=== PATIENT | female | born 1960 | race Caucasian/White ===

== ENCOUNTER 2018-05-29 14:59 | Outpatient (CLI) | payer MEDICARE, SELFPAY ==
--- NOTE | 2018-05-29 15:10 | DI.RAD_ITS ---
SYMPTOM/DIAGNOSIS: BACK PAIN/RT LEG PARESTHESIAS S39.92XA, W19.XXA PELVIS AND BILATERAL HIPS: The hip ;joint spaces are well maintained. There is minimal acetabular spurring. The S-I joints show mild spurring. IMPRESSION: Mild degenerative changes.
--- NOTE | 2018-05-29 15:10 | DI.RAD_ITS ---
SYMPTOM/DIAGNOSIS: BACK PAIN AND FALL, NUMBNESS RT LEG LUMBAR SPINE: Comparison is made with CT abdomen and pelvis dated 22 Jul 2015. There is a moderate dextroscoliosis, worsening when compared with the previous exam. Degenerative disc changes are seen which are asymmetric with disc space narrowing on the left side, end plate osteophytes as well as sclerosis at L2-3 and L3-4. There is narrowing on the right side at L5-S1. No compression fractures are seen. IMPRESSION: Degenerative disc changes, greatest on the left side at L3-4 and on the right at L5-S1.
== END 2018-05-29 15:19 ==
PROVIDERS: PCP Family Medicine; Visit Provider Internal Medicine
DX: M54.5 Low back pain (principal); R20.0 Anesthesia of skin; M51.37 Other intervertebral disc degeneration, lumbosacral region; S39.92XA Unspecified injury of lower back, initial encounter; W19.XXXA Unspecified fall, initial encounter; M16.0 Bilateral primary osteoarthritis of hip
CPT/HCPCS: 73521; 72110

== ENCOUNTER → 2018-05-31 09:10 | Outpatient (CLI) | payer MEDICARE, SELFPAY ==
--- NOTE | 2018-05-31 11:06 | DI.MRI_ITS ---
SYMPTOM/DIAGNOSIS: INJURY, S34.109a, BACK PAIN, INCONTINENCE, RT LEG PAIN LUMBAR SPINE MRI: Routine noncontrast examination. There is a right convex scoliosis of the lumbar spine. Marrow signal shows no evidence of an occult fracture. The conus medullaris has a normal appearance and location. At L 5-S 1, there is disc desiccation. There is a diffuse disc bulge. No central spinal canal stenosis is seen. There are degenerative changes of the facets. There is marked right neural foraminal stenosis compressing the exiting nerve root. No significant left neural foraminal stenosis is present. At L 4-5, there is disc desiccation. Endplate degenerative signal changes are noted. There is a mild diffuse disc bulge. No focal disc herniation or significant central spinal canal stenosis is present. There are hypertrophic changes of the facets. There is mild bilateral narrowing of the neural foramen. Mild compression of the left exiting nerve root is seen. At L 3-4, there is degenerative disc disease. Endplate osteophytes and degenerative endplate signal changes are present. There is a diffuse disc bulge. There are degenerative changes of the facets which cause mild narrowing of the central spinal canal. No significant right neural foraminal stenosis is seen. There is moderate left neural foraminal stenosis with mild compression of the exiting nerve root. At L 2-3, there is disc desiccation. No focal disc herniation or central spinal canal stenosis is seen. There is mild narrowing of the left neural foramen. No significant nerve root compression is seen. No right neural foraminal stenosis is seen. At L 1-2, there is no focal disc herniation, central spinal canal or neural foraminal stenosis. Degenerative endplate signal changes are present. IMPRESSION: 1. No evidence of an acute fracture. 2. Multi level degenerative changes in the lumbar spine resulting in central spinal canal and neural foraminal stenosis. The findings are most marked at L 4-5 and L 5-S 1 as described above.
== END ==
PROVIDERS: PCP Family Medicine; Visit Provider Internal Medicine
DX: M54.5 Low back pain (principal); M79.604 Pain in right leg; M51.16 Intervertebral disc disorders with radiculopathy, lumbar region; M51.37 Other intervertebral disc degeneration, lumbosacral region; R32 Unspecified urinary incontinence
CPT/HCPCS: 72148

== ENCOUNTER 2019-05-12 02:07 | Outpatient (CLI) | payer MEDICARE, SELFPAY ==
[2019-05-12 12:34] LABS: ALT 43 U/L (14-59); AST 22 U/L (15-37); Alkaline Phosphatase 103 U/L (46-116); Anion Gap 9.2 mmol/L (3-11); BUN 26 mg/dL (7-18); Bilirubin, Total 0.8 mg/dL (0.2-1.0); CO2 28.8 mmol/L (21.0-32.0); Calcium 9.3 mg/dL (8.5-10.1); Chloride 104 mmol/L (98-107); Estimated GFR 57.15 (mL/min/1.73m2); Glucose 95 mg/dL (70-100); Potassium 4.1 mmol/L (3.5-5.1); Sodium 142 mmol/L (136-145)
== END 2019-05-12 02:27 ==
PROVIDERS: PCP Family Medicine; Visit Provider Family Medicine
DX: I10 Essential (primary) hypertension (principal)
CPT/HCPCS: 36415; 80053

== ENCOUNTER 2019-05-28 15:16 | Outpatient (REF) | payer MEDICARE, SELFPAY ==
--- NOTE | 2019-05-28 11:40 | SKI_PTH ---
PATIENT: Christian William LOC: [facility] U#:[id number] AGE/SX: 58/F ROOM: RE05/28/[address]: Augusto Erazo MD : 1960 BED: DIS: 05/28/2019 SPEC #: [id number] RECD: 05/28/19 18:21 STATUS: LOBITO ARMSTRONG #: [id number] [place]: 05/28/19 11:[address]: Augusto Erazo DEPT: Surgical Specimen RECD BY: Gladis Sheldon Tissues: 1 - SKIN BIOPSY(SHAVE/PUNCH) Procedures: SKIN LEVEL 4 Comments: [id number]
== END 2019-05-28 15:36 ==
LOC: LBN 15:16
PROVIDERS: PCP Family Medicine; Visit Provider Family Medicine
DX: D22.61 Melanocytic nevi of right upper limb, including shoulder (principal)
CPT/HCPCS: 88305

== ENCOUNTER 2019-06-11 00:57 | Outpatient (CLI) | payer MEDICARE, SELFPAY ==
--- NOTE | 2019-06-11 11:02 | DI.MAMMO_ITS ---
EXAM: MG MAMMO SCREENING CLINICAL HISTORY: screening, Z12.31. TECHNIQUE: Full field digital CC and MLO mammographic images were obtained with 3D tomosynthesis and utilizing computer aided detection (CAD). COMPARISON: [id number] FINDINGS: Breast density: B Masses/Architectural Distortion: None seen. Microcalcifications: No suspicious pleomorphic-type calcifications are seen. Skin Thickening/Nipple Retraction: None. Axilla: Unremarkable. IMPRESSION: 1. BI-RADS category 1, negative. No significant interval change with no specific features of maligna ncy noted. 2. Unless there is more urgent need, screening mammography is recommended, as per [employer] guidelines. BI-RADS Cat 1 - Negative Breast Density - Category B - Scattered areas of fibroglandular density A negative radiographic report should not delay biopsy if a dominant or clinically suspicious mass is present. Up to ten percent of cancers are not identified on mammography. A negative report may reinforce clinical impression. Adenosis and dense breasts may obscure an underlying neoplasm. False positive reports average 6 to 10%. Patient will receive a letter notifying them of these results.
== END 2019-06-11 01:17 ==
PROVIDERS: PCP Family Medicine; Visit Provider Family Medicine
DX: Z12.31 Encounter for screening mammogram for malignant neoplasm of breast (principal)
CPT/HCPCS: 77063; 77067

== ENCOUNTER → 2019-11-25 12:01 | Outpatient (BNVA) | payer MEDICARE, SELFPAY | PROVIDERS: PCP Family Medicine; Referring Provider Neurological Surgery; Visit Provider Psychiatry & Neurology Neurology | DX: M25.551 Pain in right hip (principal); R20.2 Paresthesia of skin; M41.9 Scoliosis, unspecified; I10 Essential (primary) hypertension | CPT/HCPCS: 95886; 95908; 99204 ==

== ENCOUNTER → 2019-12-25 10:42 | Outpatient (BNVA) | payer MEDICARE, SELFPAY | PROVIDERS: PCP Family Medicine; Referring Provider Family Medicine; Visit Provider Student in an Organized Health Care Education/Training Program | DX: M25.551 Pain in right hip (principal); M41.86 Other forms of scoliosis, lumbar region; M54.16 Radiculopathy, lumbar region; M70.61 Trochanteric bursitis, right hip | CPT/HCPCS: 20610; 99203; 99214; J1040 ==

== ENCOUNTER 2020-05-18 11:44 | Outpatient (REF) | payer MEDICARE, SELFPAY ==
--- NOTE | 2020-05-18 10:30 | PAPFT_PTH ---
PATIENT: Christian William LOC: [facility] U#:[id number] AGE/SX: 59/F ROOM: RE05/18/[address]: Sherlyn Dsouza APRN : 1960 BED: DIS: 05/18/2020 SPEC #: [id number] RECD: 05/18/20 12:51 STATUS: LOBITO REQ #: [id number] [place]: 05/18/20 10:[address]: Sherlyn Dsouza DEPT: [facility] Cytology RECD BY: Gladis Sheldon ENTERED: 05/18/20 12:51 SP TYPE: PAPFT OTHR DR: Augusto Erazo MD Tissues: 1 - CX/ENDOCX FOR PAP SMEARS Procedures: PAP THIN PREP/UVM Screening HPV DNA PROBE Comments: [id number]
== END 2020-05-18 12:04 ==
LOC: LBN 11:44
PROVIDERS: PCP Family Medicine
DX: R87.610 Atypical squamous cells of undetermined significance on cytologic smear of cervix (ASC-US) (principal); R87.810 Cervical high risk human papillomavirus (HPV) DNA test positive
CPT/HCPCS: 88142; 87624

== ENCOUNTER 2020-07-13 03:18 | Outpatient (CLI) | payer MEDICARE, SELFPAY ==
[2020-07-13 12:49] LABS: ALT 30 U/L (14-59); AST 18 U/L (15-37); Albumin 4.3 g/dL (3.4-5.0); Alkaline Phosphatase 90 U/L (46-116); Anion Gap 10.4 mmol/L (3-11); BUN 16 mg/dL (7-18); Bilirubin, Total 0.8 mg/dL (0.2-1.0); CO2 28.6 mmol/L (21.0-32.0); CREATININE 0.91 mg/dL (0.55-1.02); Calcium 9.5 mg/dL (8.5-10.1); Chloride 103 mmol/L (98-107); Glucose 103 mg/dL (74-106); Potassium 3.8 mmol/L (3.5-5.1); Sodium 142 mmol/L (136-145); Total Protein 7.3 g/dL (6.4-8.2)
== END 2020-07-13 03:38 ==
DX: I10 Essential (primary) hypertension (principal); M70.61 Trochanteric bursitis, right hip
CPT/HCPCS: 36415; 80053

== ENCOUNTER 2020-08-02 01:18 | Outpatient (CLI) | payer MEDICARE, SELFPAY ==
--- NOTE | 2020-08-02 | DI.MAMMO_ITS ---
EXAM: MG MAMMO SCREENING CLINICAL HISTORY: AICHA, Z12.39 TECHNIQUE: Bilateral full field digital CC and MLO mammographic images were obtained with 3D tomosyn thesis and utilizing computer aided detection (CAD). COMPARISON: Available for comparison. FINDINGS: Masses/Architectural Distortion: There are 2 areas of asymmetric density in the posterior upper right breast on the MLO view. These areas appear more prominent compared to the prior examination. Microcalcifications: No suspicious pleomorphic-type are seen. Skin Thickening/Nipple Retraction: None. IMPRESSION: 1. Asymmetric densities in the upper posterior right breast on the MLO view. 2. Spot compression views and a right breast ultrasound are recommended for further evaluation. BI-RADS Category 0 - Assessment Incomplete: Need additional imaging evaluation Breast Density - Category B - Scattered areas of fibroglandular density Breast density category C or D implies that the patient has dense breast tissue. Dense breast tissue is very common and is not abnormal but dense breast tissue can make it harder to find cancer on a ma mmogram. Also, dense breast tissue may increase their breast cancer risk. This information about the result of the mammogram report was provided to the patient to raise their awareness. Use this report when you speak with the patient about their risks for breast cancer, which includes their family hist ory. At that time, you may recommend for more screening tests (Ultrasound or MRI) as they might be us eful based on their risk. A negative radiographic report should not delay biopsy if a dominant or clinically suspicious mass is present. Up to ten percent of cancers are not identified on mammography. A negative report may reinforce clinical impression. Adenosis and dense breasts may obscure an underlying neoplasm. False positive reports average 6 to 10%. Patient will receive a letter notifying them of these results.
== END 2020-08-02 01:19 | disposition home or self-care (01) ==
LOC: DI 01:19
DX: Z12.31 Encounter for screening mammogram for malignant neoplasm of breast (principal); R92.8 Other abnormal and inconclusive findings on diagnostic imaging of breast
CPT/HCPCS: 77063; 77067

== ENCOUNTER 2020-08-09 00:25 | Outpatient (CLI) | payer MEDICARE, SELFPAY ==
--- NOTE | 2020-08-09 | DI.US_ITS ---
EXAM: US BREAST RT COMPLETE CLINICAL HISTORY: F/U MAMMO, ASYMMETRIC DENSITIES UPPER POST RT BREAST. TECHNIQUE: Complete ultrasound of the right breast was performed incluing all 4 quadrants, the retro areolar region, and the ipsilateral axilla. COMPARISON: Prior mammograms were reviewed. Today's diagnostic right breast mammogram images were al so reviewed. FINDINGS: There is no evidence of solid or significant cystic lesions in all 4 quadrants nor in the retroareola r region. No focal ultrasound findings to correspond to the findings described on the recent screeni ng mammogram. . IMPRESSION: Negative right breast ultrasound Appropriate follow-up is repeat right breast 3D mammography in 6 months. BI-RADS Category 3 - 6 month - Probably Benign Finding: Recommend follow-up mammography in 6 months Breast Density - Category B - Scattered areas of fibroglandular density Breast density Category C or D implies that the patient has dense breast tissue. Dense breast tissue can make it harder to find cancer on a mammogram. Dense breast tissue is also associated with an incr eased risk of breast cancer. This information about the result of the mammogram report was provided to the patient to raise their awareness. Use this report when you speak with the patient about their risks for breast cancer, which includes their family history. At that time, you may recommend additional screening tests (Ultrasoun d or MRI) as these tests may add significant information. A negative radiographic report should not delay biopsy if a dominant or clinically suspicious mass is present. Up to ten percent of cancers are not identified on mammography. A negative report may reinforce clinical impression. Adenosis and dense breasts may obscure an underlying neoplasm. False positive reports average 6 to 10%. Patient will receive a letter notifying them of these results.
--- NOTE | 2020-08-09 | DI.MAMMO_ITS ---
EXAM: MG MAMMO SCREEN CALL BACK UNI CLINICAL HISTORY: F/U MAMMO, ASYMMETRIC DENSITIES UPPER POST RT BREAST ON MLO VIEW. TECHNIQUE: Bilateral full field digital CC and MLO mammographic images were obtained with 3D tomosyn thesis and utilizing computer aided detection (CAD). COMPARISON: Prior mammograms dating back to 2012, the most recent being 08/02/2020. FINDINGS: Additional spot compression 3D MLO views of the right breast are less concerning for ominous mass. A few benign-appearing microcalcifications are noted more anteriorly in the right breast. Complete right breast ultrasound performed following today's additional mammographic views also does not reveal significant focal findings. . IMPRESSION: Benign-appearing right breast findings. No obvious radiographic evidence of malignancy in the right breast. Appropriate follow-up is repeat right breast 3D mammography in 6 months, earlier if clinically indica marisol. BI-RADS Category 3 - 6 month - Probably Benign Finding: Recommend follow-up mammography in 6 months Breast Density - Category B - Scattered areas of fibroglandular density Breast density Category C or D implies that the patient has dense breast tissue. Dense breast tissue can make it harder to find cancer on a mammogram. Dense breast tissue is also associated with an incr eased risk of breast cancer. This information about the result of the mammogram report was provided to the patient to raise their awareness. Use this report when you speak with the patient about their risks for breast cancer, which includes their family history. At that time, you may recommend additional screening tests (Ultrasoun d or MRI) as these tests may add significant information. A negative radiographic report should not delay biopsy if a dominant or clinically suspicious mass is present. Up to ten percent of cancers are not identified on mammography. A negative report may reinforce clinical impression. Adenosis and dense breasts may obscure an underlying neoplasm. False positive reports average 6 to 10%. Patient will receive a letter notifying them of these results.
== END 2020-08-09 00:26 ==
LOC: DI 00:25
DX: R92.8 Other abnormal and inconclusive findings on diagnostic imaging of breast (principal); R92.1 Mammographic calcification found on diagnostic imaging of breast
CPT/HCPCS: 76642; 77063; 77067

== ENCOUNTER 2021-02-09 00:58 | Outpatient (CLI) | payer MEDICARE, SELFPAY ==
--- NOTE | 2021-02-09 10:27 | DI.MAMMO_ITS ---
Exam(s) MAMMO DIAGNOSTIC UNI EXAM: MAMMO DIAGNOSTIC UNI-RIGHT CLINICAL HISTORY: 3-6 MO F/U OF RT BREAST,R92.8,Z09. TECHNIQUE: Both CC and MLO views of the right breast were performed as well as unilateral spot mammo graphic images were obtained with 3D Tomosynthesistechnique and utilizing computer aided detection (C AD). COMPARISON: Prior mammograms dating back to 2012, the most recent being July 2020. Ultrasound F ebruary 2020 was also reviewed. This is a six-month follow-up. FINDINGS: Previously described asymmetric densities right breast actually appear less concerning on today's juan dy, further evidence that this amounts to benign findings. No new spiculated masses nor malignant-appearing microcalcification groups in the right breast. No n ew architectural distortion or skin thickening-traction IMPRESSION: No radiographic evidence of malignancy in the right breast. Appropriate follow-up is to keep this patient yearly mammogram schedule, this implying the next mammo gram would be in July 2021, with earlier imaging if a self detected breast change is noted. The patient was informed of the findings and follow-up recommendations prior to leaving the [facility]. BI-RADS Category 2 - Benign Findings Breast Density - Category B - Scattered areas of fibroglandular density Breast density Category C or D implies that the patient has dense breast tissue. Dense breast tissue can make it harder to find cancer on a mammogram. Dense breast tissue is also associated with an incr eased risk of breast cancer. This information about the result of the mammogram report was provided to the patient to raise their awareness. Use this report when you speak with the patient about their risks for breast cancer, which includes their family history. At that time, you may recommend additional screening tests (Ultrasoun d or MRI) as these tests may add significant information. A negative radiographic report should not delay biopsy if a dominant or clinically suspicious mass is present. Up to ten percent of cancers are not identified on mammography. A negative report may reinforce clinical impression. Adenosis and dense breasts may obscure an underlying neoplasm. False positive reports average 6 to 10%. Patient will receive a letter notifying them of these results.
== END 2021-02-09 01:18 ==
DX: Z09 Encounter for follow-up examination after completed treatment for conditions other than malignant neoplasm (principal); R92.8 Other abnormal and inconclusive findings on diagnostic imaging of breast
CPT/HCPCS: 77061; 77065; G0279

== ENCOUNTER 2021-07-05 15:21 | Outpatient (REF) | payer MEDICARE, SELFPAY ==
--- NOTE | 2021-07-05 14:00 | PAPFT_PTH ---
PATIENT: Christian William LOC: [facility] U#:[id number] AGE/SX: 60/F ROOM: RE07/05/[address]: Sherlyn Dsouza APRN : 1960 BED: DIS: 07/05/2021 SPEC #: [id number] RECD: 07/05/21 18:25 STATUS: LOBITO ARMSTRONG #: [id number] [place]: 07/05/21 14:[address]: Sherlyn Dsouza DEPT: [facility] Cytology RECD BY: Gladis Sheldon Tissues: 1 - CX/ENDOCX FOR PAP SMEARS Procedures: PAP THIN PREP/UVM Screening HPV DNA PROBE Comments: [id number]
== END 2021-07-05 15:22 | disposition home or self-care (01) ==
LOC: LBN 15:21
DX: Z12.4 Encounter for screening for malignant neoplasm of cervix (principal); Z11.51 Encounter for screening for human papillomavirus (HPV); Z01.419 Encounter for gynecological examination (general) (routine) without abnormal findings
CPT/HCPCS: 88142; 87624

== ENCOUNTER 2021-07-15 01:50 | Outpatient (CLI) | payer MEDICARE, SELFPAY ==
[2021-07-15 09:01] LABS: ALT 32 U/L (14-59); AST 20 U/L (15-37); Albumin 3.8 g/dL (3.4-5.0); Alkaline Phosphatase 105 U/L (46-116); Anion Gap 6.4 mmol/L (3-11); BUN 17 mg/dL (7-18); Bilirubin, Total 0.6 mg/dL (0.2-1.0); CO2 32.6 mmol/L (21.0-32.0); CREATININE 0.9 mg/dL (0.55-1.02); Calcium 8.9 mg/dL (8.5-10.1); Calculated LDL 144 mg/dL (<100); Chloride 102 mmol/L (98-107); Cholesterol 251 mg/dL (<200); Glucose 105 mg/dL (74-106); HDL Cholesterol 93 mg/dL (40-60); Potassium 3.8 mmol/L (3.5-5.1); Sodium 141 mmol/L (136-145); Total Protein 6.8 g/dL (6.4-8.2); Triglyceride 71 mg/dL (<150)
== END 2021-07-15 01:51 | disposition home or self-care (01) ==
LOC: LBO 01:50
DX: E78.5 Hyperlipidemia, unspecified (principal); I10 Essential (primary) hypertension
CPT/HCPCS: 36415; 80053; 80061

== ENCOUNTER 2021-08-10 01:39 | Outpatient (CLI) | payer MEDICARE, SELFPAY ==
--- NOTE | 2021-08-10 07:00 | DI.MAMMO_ITS ---
Exam(s) MAMMO SCREENING EXAM: MAMMO SCREENING CLINICAL HISTORY: screening,z12.39 TECHNIQUE: Bilateral full field digital CC and MLO mammographic images were obtained with 3D tomosyn thesis and utilizing computer aided detection (CAD). COMPARISON: Available for comparison. FINDINGS: Masses/Architectural Distortion: There are areas of asymmetric breast tissue in the right breast. On the CC view, there are 2 areas in the outer half of the right breast. On the MLO view, there is an area seen posteriorly and superiorly which appears more prominent compared to the prior examination. These area should be further evaluated. Microcalcifications: No suspicious pleomorphic-type are seen. Skin Thickening/Nipple Retraction: None. IMPRESSION: 1. Additional views of the right breast as described above. 2. Ultrasound may be indicated at that time. BI-RADS Category 0 - Assessment Incomplete: Need additional imaging evaluation Breast Density - Category B - Scattered areas of fibroglandular density Breast density category C or D implies that the patient has dense breast tissue. Dense breast tissue is very common and is not abnormal but dense breast tissue can make it harder to find cancer on a ma mmogram. Also, dense breast tissue may increase their breast cancer risk. This information about the result of the mammogram report was provided to the patient to raise their awareness. Use this report when you speak with the patient about their risks for breast cancer, which includes their family hist ory. At that time, you may recommend for more screening tests (Ultrasound or MRI) as they might be us eful based on their risk. A negative radiographic report should not delay biopsy if a dominant or clinically suspicious mass is present. Up to ten percent of cancers are not identified on mammography. A negative report may reinforce clinical impression. Adenosis and dense breasts may obscure an underlying neoplasm. False positive reports average 6 to 10%. Patient will receive a letter notifying them of these results.
== END 2021-08-10 01:59 ==
DX: Z12.31 Encounter for screening mammogram for malignant neoplasm of breast (principal); R92.8 Other abnormal and inconclusive findings on diagnostic imaging of breast
CPT/HCPCS: 77063; 77067

== ENCOUNTER 2021-09-26 01:06 | Outpatient (CLI) | payer MEDICARE, SELFPAY ==
--- NOTE | 2021-09-26 | DI.MAMMO_ITS ---
Exam(s) MAMMO SCREEN CALL BACK UNI EXAM: MAMMO SCREEN CALL BACK UNI -RIGHT CLINICAL HISTORY: ASYMMETRIC BREAST TISSUE RIGHT BREAST. TECHNIQUE: Unilateral spot mammographic images obtained with 3D tomosynthesisand utilizing computer aided detection (CAD). . COMPARISON: Prior mammograms were reviewed. This additional imaging was performed due to findings described on the recent screening mammogram of 08/10/2021. FINDINGS: Additional mammographic views performed todaydissipate 1 but not both of the findings in the right br east recently described. Ultrasound is recommended Unfortunately this patient was apparently not able to stay for this ultrasound today and will have to be scheduled. IMPRESSION: Persistent right breast finding on additional mammographic views performed today.. Unfortunately thi s patient was not able to stay for breast ultrasound examination today and this will half to be sched uled. There is any problem fitting her in the schedule within the next 2 weeks then please contact coy ac in the Radiology Department at [facility] The patient was informed of these findings and recommendations prior to leaving the department today. BI-RADS Category 0 - Assessment Incomplete: Need additional imaging evaluation Breast Density - Category B - Scattered areas of fibroglandular density Breast density Category C or D implies that the patient has dense breast tissue. Dense breast tissue can make it harder to find cancer on a mammogram. Dense breast tissue is also associated with an incr eased risk of breast cancer. This information about the result of the mammogram report was provided to the patient to raise their awareness. Use this report when you speak with the patient about their risks for breast cancer, which includes their family history. At that time, you may recommend additional screening tests (Ultrasoun d or MRI) as these tests may add significant information. A negative radiographic report should not delay biopsy if a dominant or clinically suspicious mass is present. Up to ten percent of cancers are not identified on mammography. A negative report may reinforce clinical impression. Adenosis and dense breasts may obscure an underlying neoplasm. False positive reports average 6 to 10%. Patient will receive a letter notifying them of these results.
== END 2021-09-26 01:26 ==
DX: R92.8 Other abnormal and inconclusive findings on diagnostic imaging of breast (principal); N64.89 Other specified disorders of breast; Z12.31 Encounter for screening mammogram for malignant neoplasm of breast
CPT/HCPCS: 77063; 77067

== ENCOUNTER → 2021-10-04 01:44 | Outpatient (CLI) | payer MEDICARE, MEDICAID, SELFPAY ==
--- NOTE | 2021-10-04 14:30 | DI.US_ITS ---
Exam(s) US BREAST RT LIMITED EXAM: US BREAST RT LIMITED CLINICAL HISTORY: F/U ABNL MAMMO, ASYMMETRIC TISSUE IN RT BREAST TECHNIQUE: Ultrasound right breast performed using standard protocol. COMPARISON: Comparison made with prior examinations. FINDINGS: No solid or cystic masses, hypoechoic foci, areas of abnormal shadowing, or areas of skin thickening. IMPRESSION: 1. No sonographically suspicious finding. 2. Six-month follow-up right mammogram is recommended for re-evaluation. 3. Findings were discussed with the patient on the date of the examination. BI-RADS Category 3 - 6 month - Probably Benign Finding: Recommend follow-up imaging in 6 months DATA REPOSITORY:
== END ==
DX: R92.8 Other abnormal and inconclusive findings on diagnostic imaging of breast (principal); N64.59 Other signs and symptoms in breast
CPT/HCPCS: 76642

== ENCOUNTER 2022-07-14 01:18 | Outpatient (CLI) | payer MEDICARE, SELFPAY ==
[2022-07-14 12:27] LABS: Anion Gap 9.6 mmol/L (3-11); BUN 16 mg/dL (7-18); CO2 27.4 mmol/L (21.0-32.0); Calcium 9.7 mg/dL (8.5-10.1); Chloride 100 mmol/L (98-107); Estimated GFR 64.49 (mL/min/1.73m2); Glucose 109 mg/dL (74-106); Potassium 3.5 mmol/L (3.5-5.1); Sodium 137 mmol/L (136-145)
== END 2022-07-14 01:19 | disposition home or self-care (01) ==
LOC: LOS 01:18
PROVIDERS: PCP Nurse Practitioner Family; Visit Provider Nurse Practitioner Family
DX: Z11.9 Encounter for screening for infectious and parasitic diseases, unspecified (principal)
CPT/HCPCS: 36415; 80048

== ENCOUNTER 2022-08-17 00:51 | Outpatient (CLI) | payer MEDICARE, MEDICAID, SELFPAY ==
--- NOTE | 2022-08-17 07:45 | DI.MAMMO_ITS ---
Exam(s) MAMMO SCREENING EXAM: MAMMO SCREENING CLINICAL HISTORY: screening,Z12.38 TECHNIQUE: Bilateral full field digital CC and MLO mammographic images were obtained with 3D tomosyn thesis and utilizing computer aided detection (CAD). COMPARISON: Available for comparison. FINDINGS: Masses/Architectural Distortion: None seen. Microcalcifications: No suspicious pleomorphic-type are seen. Skin Thickening/Nipple Retraction: None. IMPRESSION: 1. No significant interval change with no specific features of malignancy noted. 2. Unless there is more urgent need, screening mammography is recommended, as per [employer] guidelines. BI-RADS Category 1 - Negative Breast Density - Category B - Scattered areas of fibroglandular density Breast density category C or D implies that the patient has dense breast tissue. Dense breast tissue is very common and is not abnormal but dense breast tissue can make it harder to find cancer on a ma mmogram. Also, dense breast tissue may increase their breast cancer risk. This information about the result of the mammogram report was provided to the patient to raise their awareness. Use this report when you speak with the patient about their risks for breast cancer, which includes their family hist ory. At that time, you may recommend for more screening tests (Ultrasound or MRI) as they might be us eful based on their risk. A negative radiographic report should not delay biopsy if a dominant or clinically suspicious mass is present. Up to ten percent of cancers are not identified on mammography. A negative report may reinforce clinical impression. Adenosis and dense breasts may obscure an underlying neoplasm. False positive reports average 6 to 10%. Patient will receive a letter notifying them of these results.
== END 2022-08-17 01:11 ==
PROVIDERS: PCP Nurse Practitioner Family; Visit Provider Nurse Practitioner Family
DX: Z12.31 Encounter for screening mammogram for malignant neoplasm of breast (principal)
CPT/HCPCS: 77063; 77067

== ENCOUNTER 2023-01-17 12:19 | Outpatient (CLI) | payer MEDICARE, SELFPAY ==
--- NOTE | 2023-01-17 12:15 | RT.EKG_ITS ---
APPROVED REPORT Exam: Resting ECG Reason for Exam: chest discomfort Patient Location: O HR:99 bpm ECG Measurements Heart Rate 99 AXIS TX 139 P 45 QRSd 93 QRS 27 QT 352 T 32 QTc 452 Conclusion Sinus rhythm...normal P axis, V-rate 50- 99 Probable left atrial enlargement...P >50mS, <-0.10mV V1 Nondiagnostic inferior Q waves...Qs add to 80 mS in II III aVF
== END 2023-01-17 12:20 | disposition home or self-care (01) ==
LOC: DI.CM 12:20
PROVIDERS: PCP Nurse Practitioner Family; Visit Provider Nurse Practitioner Family
DX: R07.89 Other chest pain (principal)
CPT/HCPCS: 93010

== ENCOUNTER 2023-01-26 00:32 | Outpatient (CLI) | payer MEDICARE, SELFPAY ==
--- NOTE | 2023-01-26 12:53 | DI.US_ITS ---
APPROVED REPORT EXAM: Comprehensive 2D, Doppler, and color-flow Echocardiogram Patient Location: Out-Patient Assistant Professor Of Nursing: Dinora De Luna RDCS ([place]) Indications: Evaluate pathology, Essential HTN Other Information Study Quality: Adequate Conclusion Normal left ventricular wall thickness and chamber size. Ejection fraction is 60%. Wall motion is n ormal Normal right ventricular size and systolic function Both atria are normal in size There is no structural or hemodynamically significant valvular disease Wall motion Left Ventricle The left ventricle is normal size. The left ventricular systolic function is normal. The left ventric ular ejection fraction is within the normal range. There is normal left ventricular wall thickness. T here is normal LV segmental wall motion. There is no ventricular septal defect visualized. LVEF is 60 %. Right Ventricle The right ventricle is normal size. The right ventricular systolic function is normal. Atria The left atrium size is normal. The right atrium size is normal. The interatrial septum is intact wit h no evidence for an atrial septal defect. Aortic Valve The aortic valve is normal in structure. There is no aortic valvular stenosis. No aortic regurgitatio n is present. Mitral Valve The mitral valve is normal in structure. No evidence of mitral valve stenosis. Trace mitral regurgita tion. Tricuspid Valve The tricuspid valve is normal in structure. There is no tricuspid valve stenosis. Trace tricuspid reg urgitation. Unable to assess PA pressure. Pulmonic Valve The pulmonary valve is normal in structure. There is no pulmonic valvular stenosis. There is no pulmo robin valvular regurgitation. Great Vessels The aortic root is normal in size. The ascending aorta is normal IVC is normal in size and collapses >50% with inspiration. Pericardium There is no pericardial effusion. 2D Dimensions IVSD d PLAX 0.81 cm F: 0.6-1.0 LVPW d PLAX 0.84 cm F: 0.6 - 1.0 LVID d PLAX 4.40 cm F: 3.8 - 5.2 LVDs 2.95 cm F: 2.2 - 3.5 Ao Root d 2.57 cm F: 2.7 - 3.3 Ao Asc Diam d 3.21 cm F: 2.3 - 3.1 LV EF Teichholz 60.1 % FS 31.80 % M-Mode TAPSE 1.20 cm (M/F) >1.7 LV Diastology MV E' medial 0.080 (>0.07 m/s) E/A Ratio 0.6 MV E' lateral 0.120 (>0.1 m/s) MV E Vmax 0.47 (0.4-1.3 m/s) MV A Vmax 0.75 (0.4-1.3 m/s) Aortic Valve LVOT Vmax 1.26 m/s LVOT Peak Grad 6.3 mmHg LVOT Mean Grad 3.2 mmHg LVOT Diam s 1.85 cm AoV Vmax 1.83 m/s Velocity Ratio 0.69 AoV Peak Grad 13.4 mmHg LVOT SV 59.32 mL AoV Mean Grad 6.3 mmHg AoV Area VTI 1.98 cm2 Mitral Valve MV DT 56 (160-240 msec) MV Vmax TIPS 0.90 m/s MV Mean Grad 1.4 (<2mmHg) MV VTI 0.196 m Pulmonary Valve PV Mean Grad 2.7 mmHg RVOT Peak Gr. 3.18 mmHg RVOT Mean Gr. 1.55 mmHg RVOT VTI 0.160 m RVOT Vmax 0.89 m/s
== END 2023-01-26 00:52 ==
LOC: DI 00:34
PROVIDERS: PCP Nurse Practitioner Family; Visit Provider Nurse Practitioner Family
DX: I10 Essential (primary) hypertension (principal)
CPT/HCPCS: 93306

== ENCOUNTER 2023-07-20 12:18 | Outpatient (REF) | payer MEDICARE, SELFPAY ==
[2023-07-20 21:01] LABS: Anion Gap 8.8 mmol/L (3-11); BUN 12 mg/dL (7-18); CO2 28.2 mmol/L (21.0-32.0); CREATININE 0.9 mg/dL (0.55-1.02); Calcium 9.4 mg/dL (8.5-10.1); Chloride 98 mmol/L (98-107); Estimated GFR 72.73 (mL/min/1.73m2); Glucose 98 mg/dL (74-106); Potassium 3.3 mmol/L (3.5-5.1); Sodium 135 mmol/L (136-145)
== END 2023-07-20 12:19 | disposition home or self-care (01) ==
LOC: LBN 12:18
PROVIDERS: PCP Nurse Practitioner Family; Visit Provider Nurse Practitioner Family
DX: I10 Essential (primary) hypertension (principal); E78.5 Hyperlipidemia, unspecified
CPT/HCPCS: 80048

== ENCOUNTER → 2023-07-25 14:07 | Outpatient (CLI) | payer MEDICARE, SELFPAY ==
--- NOTE | 2023-07-25 14:26 | DI.RAD_ITS ---
Exam(s) XR ABDOMEN FLAT UPRIGHT EXAM: 2D digital imaging was performed. CLINICAL HISTORY: continued pain R10.31 RLQ PAIN. COMPARISON: No exams were available for comparison TECHNIQUE: Supine and upright views of the abdomen was performed. Three images were obtained. FINDINGS: LUNG BASES: Clear. BOWEL GAS PATTERN: There is a moderate amount of stool in the colon suggesting constipation. There i s no evidence of obstruction. FREE AIR: None. CALCIFICATIONS: No radiopaque calcifications. OSSEOUS STRUCTURES: There is a right convex scoliosis the apex at L2-L3. Moderately severe degenerat chase changes are seen throughout the lumbar spine. OTHER FINDINGS: Surgical clips are seen in the right upper quadrant of the abdomen. Phleboliths are seen in the pelvis. IMPRESSION: Moderate amount of stool in the colon suspicious for constipation. DATA REPOSITORY: RADIATION DOSE DELIVERED:
== END ==
PROVIDERS: PCP Nurse Practitioner Family; Visit Provider Nurse Practitioner Family
DX: R10.31 Right lower quadrant pain (principal)
CPT/HCPCS: 74019

== ENCOUNTER 2023-07-31 04:54 | Outpatient (CLI) | payer MEDICARE, SELFPAY ==
[2023-07-31 12:30] LABS: Abs Immature Grans 0.01 10^3/uL (0.0-0.06); Absolute Basophil Count 0.06 10^3/uL (0.0-0.2); Absolute Eosinophil Count 0.07 10^3/uL (0.0-0.7); Absolute Monocyte Count 0.51 10^3/uL (0.1-0.8); Absolute Neutrophil Count 2.34 10^3/uL (1.2-6.7); Basophils % 1.1; Eosinophils % 1.3; HCT 36.7 % (36.0-46.0); HGB 12.6 g/dL (11.2-15.7); Immature Grans % 0.2; Lymphocytes % 45.5; MCH 30.1 pg (27.0-33.0); MCHC 34.3 % (32.0-36.0); MCV 88 fL (80-95); MPV 8.7 fL (8.0-11.0); Monocytes % 9.3; Neutrophils % 42.6; Platelet Count 371 10^3/uL (130-400); RBC 4.18 10^6/uL (3.93-5.22); RDW 12.8 % (11.7-14.6); RDW-SD 41.4 fL; WBC 5.49 10^3/uL (4.4-10.8)
[2023-07-31 12:49] LABS: ALT 34 U/L (14-59); AST 22 U/L (15-37); Albumin 4.1 g/dL (3.4-5.0); Alkaline Phosphatase 114 U/L (46-116); Anion Gap 8.7 mmol/L (3-11); BUN 10 mg/dL (7-18); Bilirubin, Total 0.7 mg/dL (0.2-1.0); CO2 28.3 mmol/L (21.0-32.0); CREATININE 0.9 mg/dL (0.55-1.02); Chloride 97 mmol/L (98-107); Estimated GFR 72.73 (mL/min/1.73m2); Glucose 128 mg/dL (74-106); Potassium 3.6 mmol/L (3.5-5.1); Sodium 134 mmol/L (136-145); Total Protein 7.6 g/dL (6.4-8.2)
== END 2023-07-31 04:55 | disposition home or self-care (01) ==
LOC: LOS 04:55
PROVIDERS: PCP Nurse Practitioner Family; Visit Provider Nurse Practitioner Family
DX: I10 Essential (primary) hypertension (principal); R10.31 Right lower quadrant pain
CPT/HCPCS: 36415; 80053; 85025

== ENCOUNTER → 2023-08-03 01:29 | Outpatient (CLI) | payer MEDICARE, SELFPAY ==
--- NOTE | 2023-08-03 08:00 | DI.CT_ITS ---
Exam(s) CT ABDOMEN PELVIS W EXAM: CT ABDOMEN PELVIS W CLINICAL HISTORY: increasing pain,rlq r10.31. TECHNIQUE: Imaging Protocol: Axial computed tomography images with coronal and sagittal reformatted images were created and reviewed CONTRAST MATERIAL: Intravenous: Omnipaque 350 Contrast volume:100 ml Oral: yes / COMPARISON: CT ABD PELVIS WITH CONTRAST from 07/22/2015 FINDINGS: ABDOMEN and PELVIS: Lung Bases: No acute findings. Liver: Normal density. No measurable mass. Gallbladder and biliary tract: Status post cholecystectomy. No radiodense calculus or dilation. Pancreas: Normal density. No abnormal calcifications or inflammatory process. No evidence of mass. Spleen: Normal. Kidneys: Normal size, contour and axis. No radiodense stones. No obstructive uropathy. No suspicious masses seen. Adrenal glands: No masses seen. Vasculature: Abdominal aorta non-dilated. Soft tissues: Unremarkable. Bladder: No gross wall thickening. No calculi.No focal mass. Bowel: No obstruction. Prominent diverticulosis. Appendix normal. Peritoneal cavity: No ascites. No focal collection or mesenteric inflammatory response. Bones: Degenerative changes in the spine. Reproductive organs: Within normal limits. Lymph nodes: Unremarkable. IMPRESSION:: Severe diverticulosis. No evidence of diverticulitis. RADIATION DOSE DELIVERED: 847.11mGy.cm Total DLP DATA REPOSITORY: All CT scans at this facility are submitted to the National Radiology Data Registry (NRDR) Dose Index Registry (DIR) with the [employer] (ACR). RADIATION OPTIMIZATION: All CT scans at this facility use at least one of these dose optimization te chniques: automated exposure control; mA and/or kV adjustment per patient size (includes targeted exa ms where dose is matched to clinical indication); or iterative reconstruction.
[2023-08-03] MEDS: Barium Sulfate 2% W/V-Berry Smoothie 450 ML BTL PO ×2 (13:41→13:42)
[2023-08-03] MEDS: Normal Saline - Diluent 50 ML VIAL IJ (15:57)
[2023-08-03] MEDS: Omnipaque 350 MG/ML 100 ML BTL IJ (15:58)
== END ==
PROVIDERS: PCP Nurse Practitioner Family; Visit Provider Nurse Practitioner Family
DX: K57.90 Diverticulosis of intestine, part unspecified, without perforation or abscess without bleeding (principal)
CPT/HCPCS: 74177; J3490

== ENCOUNTER 2024-07-24 03:17 | Outpatient (CLI) | payer MEDICARE, SELFPAY ==
--- NOTE | 2024-07-24 08:00 | DI.RAD_ITS ---
Exam(s) XR SCOLIOSIS T-L SPINE EXAM: XR SCOLIOSIS T-L SPINE CLINICAL HISTORY: worsening pain M41.86 SCOLIOSIS M54.5 LOW BACK PAIN G89.29 CHRONIC PAIN. TECHNIQUE: 2D digital imaging was performed. COMPARISON: CR XR ABDOMEN FLAT UPRIGHT from 07/25/2023 FINDINGS: 3 views There scoliosis convex right predominately in the lumbar spine. The scoliosis starts at the T11 level, and extends down to L5-S1, similar to previous. The overall a ppearance is similar to the prior study of 07/25/2023, realizing that the prior study was performed s upine and the present study is upright. With respect to the Richards angle for the lumbar scoliosis, the angle measurements are derived off the s uperior endplate of T11 and inferior endplate of L4. This describes an angle of approximately 24 deg kirti. This is quite similar to the measurement obtained today on the 07/25/2023 images. IMPRESSION: Degenerative scoliosis in the lower thoracic and lumbar spine which is convex right and exhibits mini mal change when compared to images of 07/25/2023. Richards angle measurement is approximately 24 degrees . DATA REPOSITORY: RADIATION DOSE DELIVERED:
--- NOTE | 2024-07-24 08:00 | DI.MAMMO_ITS ---
Exam(s) MAMMO SCREENING EXAM: MAMMO SCREENING CLINICAL HISTORY: screening Z12.39 TECHNIQUE: Bilateral full field digital CC and MLO mammographic images were obtained with 3D tomosyn thesis and utilizing computer aided detection (CAD). COMPARISON: Available for comparison. FINDINGS: Masses/Architectural Distortion: None seen. Microcalcifications: No suspicious pleomorphic-type are seen. Skin Thickening/Nipple Retraction: None. IMPRESSION: 1. No significant interval change with no specific features of malignancy noted. 2. Unless there is more urgent need, screening mammography is recommended, as per [employer] guidelines. BI-RADS Category 1 - Negative Breast Density - Category B - Scattered areas of fibroglandular density Breast density category C or D implies that the patient has dense breast tissue. Dense breast tissue is very common and is not abnormal but dense breast tissue can make it harder to find cancer on a ma mmogram. Also, dense breast tissue may increase their breast cancer risk. This information about the result of the mammogram report was provided to the patient to raise their awareness. Use this report when you speak with the patient about their risks for breast cancer, which includes their family hist ory. At that time, you may recommend for more screening tests (Ultrasound or MRI) as they might be us eful based on their risk. A negative radiographic report should not delay biopsy if a dominant or clinically suspicious mass is present. Up to ten percent of cancers are not identified on mammography. A negative report may reinforce clinical impression. Adenosis and dense breasts may obscure an underlying neoplasm. False positive reports average 6 to 10%. Patient will receive a letter notifying them of these results.
== END 2024-07-24 03:37 ==
LOC: DI 03:17
PROVIDERS: PCP Nurse Practitioner Family; Visit Provider Nurse Practitioner Family
DX: M41.86 Other forms of scoliosis, lumbar region (principal); G89.29 Other chronic pain; Z12.31 Encounter for screening mammogram for malignant neoplasm of breast
CPT/HCPCS: 72082; 77063; 77067

== ENCOUNTER 2024-07-31 01:49 | Outpatient (CLI) | payer MEDICARE, SELFPAY ==
[2024-07-31 12:37] LABS: ALT 36 U/L (14-59); AST 22 U/L (15-37); Albumin 4.2 g/dL (3.4-5.0); Alkaline Phosphatase 114 U/L (46-116); Anion Gap 7.2 mmol/L (3-11); BUN 20 mg/dL (7-18); Bilirubin, Total 0.49 mg/dL (0.2-1.0); CO2 29.8 mmol/L (21.0-32.0); Calcium 9.7 mg/dL (8.5-10.1); Calculated LDL 144 mg/dL (<100); Chloride 102 mmol/L (98-107); Cholesterol 238 mg/dL (<200); Glucose 113 mg/dL (74-106); HDL Cholesterol 78 mg/dL (40-60); Potassium 3.6 mmol/L (3.5-5.1); Sodium 139 mmol/L (136-145); Triglyceride 80 mg/dL (<150)
[2024-07-31 23:30] LABS: HIV-1/2 Ag & Ab Screen Negative (Negative)
[2024-07-31 23:43] LABS: HBs Antibody, Quant <3.1 mIU/mL (See Note); Hep B Surface Ab Negative (See Note); Hepatitis B Core Antibody Negative (Negative); Hepatitis B Surface Antigen Negative (Negative)
[2024-07-31 23:44] LABS: Hepatitis C Ab w Rflx HCV PCR Negative (Negative)
== END 2024-07-31 01:50 | disposition home or self-care (01) ==
LOC: LOS 01:50
PROVIDERS: PCP Nurse Practitioner Family; Visit Provider Nurse Practitioner Family
DX: Z11.59 Encounter for screening for other viral diseases (principal); E78.5 Hyperlipidemia, unspecified; Z11.4 Encounter for screening for human immunodeficiency virus [HIV]
CPT/HCPCS: 36415; 80053; 80061; 86704; 86706; 86803; 87340; 87389

== ENCOUNTER 2024-11-27 13:19 | Outpatient (REF) | payer MEDICARE, SELFPAY ==
--- NOTE | 2024-11-27 11:40 | PAPFT_PTH ---
PATIENT: Christian William LOC: [facility] U#:[id number] AGE/SX: 64/F ROOM: RE11/27/[address]: Bryanna Giraldo MD : 1960 BED: DIS: 11/27/2024 SPEC #: [id number] RECD: 11/27/24 17:44 STATUS: LOBITO REQ #: [id number] [place]: 11/27/24 11:[address]: Bryanna Giraldo DEPT: COUNT INCLUDES THE [facility] Cytology RECD BY: Gladis Sheldon ENTERED: 11/27/24 17:44 SP TYPE: PAPFT OTHR DR: Frank Wei DNP Tissues: 1 - CX/ENDOCX FOR PAP SMEARS Procedures: PAP THIN PREP/UVM Screening Comments: [id number] (UNSATISFACTORY FOR EVALUATION)
== END 2024-11-27 13:20 | disposition home or self-care (01) ==
LOC: LBN 13:19
PROVIDERS: PCP Nurse Practitioner Family; Visit Provider Obstetrics & Gynecology
DX: Z12.4 Encounter for screening for malignant neoplasm of cervix (principal)
CPT/HCPCS: 88142